=== PATIENT | male | born 1965 | race Caucasian/White ===

== ENCOUNTER 2016-10-24 10:08 | Emergency (ER) | payer SELFPAY ==
[~2016-10-24] VITALS: Ht 190.5 cm; Wt 101.3 kg
[2016-10-24 10:16] VITALS: BP 152/85; PULSE 88; RESP 18; TEMP 98.1; O2SAT 97
[2016-10-24] MEDS ORDERED: LIDOCAINE HCL 1% 50 ML VIAL INFIL ONE (10:45)
[2016-10-24] MEDS ORDERED: CEPH-460 PO (11:07)
--- NOTE | 2016-10-24 11:07 | PD ---
HPI Chief Complaint: Skin Problem Time Seen by Provider: 10:29 Travel History International Travel<30 days: No Contact w/Intl Traveler<30days: No Traveled to known affect area: No History of Present Illness HPI 51-year-old male here for evaluation of left forearm foreign body. The patient was working with wood 2x4s that were pressure-treated 3 days ago when he rubbed his arm against a wooden board. Since that time he has felt as though there is a large splinter in his left forearm. Pain is mild to moderate, worse with palpation. No other injuries. Last tetanus was 2 years ago. [facility] Past Medical History Diminished Hearing: No Past Surgical History Body Medical Devices: TITANIUM RODS ARM AND LEG Social History Alcohol Use: Yes (5-6 BEERS DAILY) Tobacco Use: Yes (ONE PPD) Substance Use: No Allergies-Medications (Allergen,Severity, Reaction): Coded Allergies: poison kirsten extract (Verified Allergy, Severe, HIVES, 10/24/16) Reported Meds & Prescriptions Reported Meds & Active Scripts Active No Active Prescriptions or Reported Medications Review of Systems Except as stated in HPI: all other systems reviewed are Neg Physical Exam Narrative GENERAL: Well-developed, well-nourished, comfortable, no apparent distress. SKIN: Left medial/anterior/mid forearm with superficial abrasions without obvious puncture wound. Subcutaneously there is a palpable linear foreign body. No overlying warmth or erythema. This area was evaluated with a bedside linear ultrasound and shows a superficial linear foreign body. CARDIOVASCULAR: Regular rate and rhythm. Left dorsalis pedis pulses brisk. MUSCULOSKELETAL: Skin exam as above. NEUROLOGICAL: Awake and alert. No obvious cranial nerve deficits. Motor grossly within normal limits. Normal speech. PSYCHIATRIC: Appropriate mood and affect; insight and judgment normal. Data Data Last Documented VS Vital Signs Date Time Temp Pulse Resp B/P (MAP) Pulse Ox O2 Delivery O2 Flow Rate FiO2 10/24/16 10:16 98.1 88 18 152/85 (107) 97 Orders Orders Lidocaine 1% Inj (50 Ml) (Xylocaine 1% I (10/24/16 10:45) [facility] Medical Decision Making Medical Screen Exam Complete: Yes Emergency Medical Condition: Yes Differential Diagnosis Left forearm foreign body Narrative Course Patient has a palpable subcutaneous foreign body in his left forearm. See skin exam. The area where the foreign body was post superficial was anesthetized with lidocaine for local anesthesia and a small 2 mm incision was made. Foreign body was apparent and was removed. See procedure note. Antibacterial ointment and Band-Aid will be applied. Patient will be discharged home with a perception for Keflex. He was informed on when to return to the emergency department. He verbalizes understanding and agreement with plan. Procedures Procedure Narrative Left forearm foreign body removal: Left forearm prepped with ChloraPrep. 0.5 cc of 1% lidocaine with epinephrine was used for local anesthesia. Small 2 mm incision was made, and a 3 cm linear foreign body was removed. Tolerated well. No complications. Diagnosis Primary Impression: Foreign body in left forearm Qualified Codes: S50.852A - Superficial foreign body of left forearm, initial encounter Referrals: Primary Care Physician 3 days Additional Instructions: Take antibiotics as prescribed. Return to the emergency department for worsening symptoms or any other concerns. Scripts Cephalexin (Keflex) 500 Mg Cap 500 MG PO Q8H for Infection, #30 CAP 0 Refills Prov: Sonido Mattson MD 10/24/16 Disposition: 01 DISCHARGE HOME Condition: Stable Sonido Mattson MD Oct 24, 2016 11:07
== END 2016-10-24 11:25 | disposition home or self-care (01) ==
LOC: PHEFT 10:08
DX: S50.852A Superficial foreign body of left forearm, initial encounter (principal); W45.8XXA Other foreign body or object entering through skin, initial encounter; Y93.89 Activity, other specified
CPT/HCPCS: 10120

== ENCOUNTER 2017-05-25 16:56 | Emergency (ER) | payer SELFPAY ==
[~2017-05-25] VITALS: Ht 190.5 cm; Wt 99.3 kg
[~2017-05-25 16:56] MED LIST: CEPH-460 PO
[2017-05-25 17:29] VITALS: BP 157/88; PULSE 76; RESP 16; TEMP 99.1; O2SAT 99
[2017-05-25] MEDS ORDERED: IBUPROFEN 600 MG TAB PO ONE (19:30)
[2017-05-25] MEDS ORDERED: PERI0.126 SWISH-SPIT (19:30)
[2017-05-25] MEDS ORDERED: PENI500T PO (19:30)
[2017-05-25] MEDS: ACETAMINOPHEN/HYDROcodone 325 MG/5 MG TAB PO ONE (19:30)
[2017-05-25] MEDS ORDERED: IBUP-232 PO (19:30)
--- NOTE | 2017-05-25 19:30 | PD ---
HPI Chief Complaint: Oral / Dental Pain or Problem Time Seen by Provider: 19:21 Travel History International Travel<30 days: No Contact w/Intl Traveler<30days: No Traveled to known affect area: No History of Present Illness HPI The patient is a 52-year-old male who presents to the emergency department for dental pain. The patient is a 2 day history of left upper dental pain with mild swelling along the gumline. The patient has a history of poor dentition, does not currently have a primary physician. He does note there is slightly swollen, tender to mastication with decreased intake secondary to pain. He denies any tooth or cold sensitivity. He does complain of a left-sided headache secondary to the pain. He denies any drainage from the affected area. He notes subjective fevers but has not measured a fever with a thermometer. He denies any chills or sweats. Symptoms are mild to moderate without any current alleviating factors. PFSH Past Medical History Medical History: Denies Significant Hx Diminished Hearing: No Immunizations Current: Yes Tetanus Vaccination: < 5 Years Influenza Vaccination: No Past Surgical History Body Medical Devices: TITANIUM RODS ARM AND LEG Social History Alcohol Use: Yes (5-6 BEERS DAILY) Tobacco Use: Yes (ONE PPD) Substance Use: No Allergies-Medications (Allergen,Severity, Reaction): Coded Allergies: poison kirsten extract (Verified Allergy, Severe, HIVES, 05/25/17) Reported Meds & Prescriptions Reported Meds & Active Scripts Active No Active Prescriptions or Reported Medications Review of Systems Except as stated in HPI: all other systems reviewed are Neg General / Constitutional: No: Fever Eyes: No: Visual changes HENT: Positive: Dental Difficulties, No: Neck Pain Gastrointestinal: No: Nausea, Vomiting Physical Exam Narrative GENERAL: Awake, alert, pleasant 52-year-old male who appears his stated age and is in no acute respiratory distress. SKIN: Focused skin assessment warm/dry. HEAD: Atraumatic. Normocephalic. EYES: Pupils equal and round. No scleral icterus. No injection or drainage. ENT: No nasal bleeding or discharge. Poor dentition with multiple teeth avulsed at the gumline. Mild swelling over the left upper gumline near tooth 11. No palpable abscess. TMs are translucent. EACs are clear. NECK: Trachea midline. No JVD. MUSCULOSKELETAL: No obvious deformities. No clubbing. No cyanosis. No edema. NEUROLOGICAL: Awake and alert. No obvious cranial nerve deficits. Motor grossly within normal limits. Normal speech. Nonfocal. PSYCHIATRIC: Appropriate mood and affect; insight and judgment normal. Data Data Last Documented VS Vital Signs Date Time Temp Pulse Resp B/P (MAP) Pulse Ox O2 Delivery O2 Flow Rate FiO2 05/25/17 17:29 99.1 76 16 157/88 (111) 99 Orders Orders Ibuprofen (Motrin) (05/25/17 19:30) Acetamin-Hydrocod 325-5 Mg ([place] 5-325 (05/25/17 19:30) [facility] Medical Decision Making Medical Screen Exam Complete: Yes Emergency Medical Condition: Yes Medical Record Reviewed: Yes Differential Diagnosis Differential diagnosis includes odontalgia, dental abscess, ANUG, gingivitis, neuralgia. Narrative Course The patient was administered ibuprofen and [place] for pain. The patient will be placed on Pen-Vee K and ibuprofen as needed for pain and was given dental information. He is advised to follow-up with a dentist. Return if symptoms worsen or progress. Diagnosis Primary Impression: Dental abscess Patient Instructions: General Instructions, Narcotic given in the ED Additional Instructions: Medications as directed. Please provide the patient dental information. Diet as tolerated. Follow-up with a dentist. Med/Other Pt SpecificInfo: Prescription(s) given Scripts Ibuprofen (Ibuprofen) 600 Mg Tab 600 MG PO Q6H Y for Pain/Inflammation, #20 TAB 0 Refills Prov: Bear Hercules MD 05/25/17 Chlorhexidine Gluconate (Mouth) Liq (Peridex Liq) 0.12% Soln 15 ML SWISH-SPIT BID, #473 ML 0 Refills Prov: Bear Hercules MD 05/25/17 Penicillin V Potassium (Penicillin V Potassium) 500 Mg Tab 500 MG PO Q6H for Infection for 10 Days, #40 TAB 0 Refills Prov: Bear Hercules MD 05/25/17 Disposition: 01 DISCHARGE HOME Condition: Stable Bear Hercules MD May 25, 2017 19:30
== END 2017-05-25 19:47 | disposition home or self-care (01) ==
LOC: PHED 16:56 → PHEFT 19:47
DX: K04.7 Periapical abscess without sinus (principal); R51 Headache
CPT/HCPCS: 99283

== ENCOUNTER 2017-07-29 13:51 | Emergency (ER) | payer OTHER ==
[~2017-07-29] VITALS: Ht 188 cm; Wt 100.4 kg
[~2017-07-29 13:51] MED LIST changes: -CEPH-460 PO; +IBUP-232 PO; +PENI500T PO; +PERI0.126 SWISH-SPIT
[2017-07-29 13:56] VITALS: BP 151/82; PULSE 95; RESP 16; TEMP 99.2; O2SAT 99
[2017-07-29] MEDS ORDERED: AUGM875T3 PO (14:11)
[2017-07-29] MEDS ORDERED: PERI0.126 SWISH-SPIT (14:11)
--- NOTE | 2017-07-29 14:13 | PD ---
HPI Chief Complaint: Oral / Dental Pain or Problem Time Seen by Provider: 14:05 Travel History International Travel<30 days: No Contact w/Intl Traveler<30days: No Traveled to known affect area: No History of Present Illness HPI 52-year-old male with a 2 day history of left upper dental pain with notable facial swelling today. History of widespread dental decay and prior dental abscesses. Denies fever chills. No difficulty swallowing. Symptom severity is moderate. No aggravating or alleviating factors. PFSH Past Medical History Medical History: Denies Significant Hx Diminished Hearing: No Immunizations Current: Yes Tetanus Vaccination: < 5 Years Influenza Vaccination: No Past Surgical History Body Medical Devices: TITANIUM RODS ARM AND LEG Social History Alcohol Use: Yes (socially beer) Tobacco Use: Yes (1 /2 ppd) Substance Use: No Allergies-Medications (Allergen,Severity, Reaction): Coded Allergies: poison kirsten extract (Verified Allergy, Severe, HIVES, 07/29/17) Reported Meds & Prescriptions Reported Meds & Active Scripts Active Augmentin (Amoxicillin-Clavulanate) 875-125 Mg Tab 1 Tab PO BID Peridex Liq (Chlorhexidine Gluconate (Mouth) Liq) 0.12% Soln 15 Ml SWISH-SPIT BID Review of Systems Except as stated in HPI: all other systems reviewed are Neg HENT: Positive: Dental Difficulties Physical Exam Narrative GENERAL: Alert and well-appearing 52-year-old male SKIN: Warm and dry. HEAD: Normocephalic. EYES: No injection or drainage. ENT: Widespread dental decay with tenderness to the left upper gumline. Uvula is midline. Airways patent. No swelling to the floor the mouth. Normal phonation. NECK: Supple, trachea midline. No lymphadenopathy. CARDIOVASCULAR: Regular rate and rhythm without murmurs, gallops, or rubs. RESPIRATORY: Breath sounds equal bilaterally. No accessory muscle use. Data Data Last Documented VS Vital Signs Date Time Temp Pulse Resp B/P (MAP) Pulse Ox O2 Delivery O2 Flow Rate FiO2 07/29/17 14:01 16 07/29/17 13:56 99.2 95 151/82 (105) 99 MDM Medical Decision Making Medical Screen Exam Complete: Yes Emergency Medical Condition: Yes Differential Diagnosis Dental abscess, periodontal disease, dental caries Narrative Course 52-year-old male with dental abscess. He is well-appearing. Will be treated with antibiotics and instructed to follow-up with dentist Diagnosis Primary Impression: Dental abscess Referrals: Primary Care Physician Additional Instructions: Antibiotics as directed. Follow-up with dentist. Return if new or worsening symptoms. Scripts Amoxicillin-Clavulanate (Augmentin) 875-125 Mg Tab 1 TAB PO BID for Infection, #20 TAB 0 Refills Prov: Vijaya Merino 07/29/17 Chlorhexidine Gluconate (Mouth) Liq (Peridex Liq) 0.12% Soln 15 ML SWISH-SPIT BID, #473 ML 0 Refills Prov: Vijaya Merino 07/29/17 Disposition: 01 DISCHARGE HOME Condition: Stable Vijaya Merino July 29, 2017 14:13
== END 2017-07-29 14:30 | disposition home or self-care (01) ==
LOC: PHEFT 13:51
DX: K04.7 Periapical abscess without sinus (principal); K02.9 Dental caries, unspecified; F17.200 Nicotine dependence, unspecified, uncomplicated
CPT/HCPCS: 99283